=== PATIENT | female | born 1935 | race Caucasian/White ===

== ENCOUNTER 2018-05-14 08:52 | Outpatient (CLI) | payer MEDICARE, BC | END 2018-05-14 08:53 | disposition home or self-care (01) | LOC: BICMAMMO 08:52 | PROVIDERS: ATTEND Internal Medicine | DX: Z12.31 Encounter for screening mammogram for malignant neoplasm of breast (principal) | CPT/HCPCS: 77063; 77067 ==

== ENCOUNTER 2020-11-29 08:33 | Outpatient (CLI) | payer MEDICARE, BC ==
--- NOTE | 2020-11-29 09:02 | RAD ---
PA AND LATERAL CHEST: Date: 11/29/2020 COMPARISON: 03/17/2019 study. HISTORY: Respiratory distress. FINDINGS: Heart size within normal limits. There are postop sternotomy changes. Lungs are clear of infiltrates. There are arthritic changes of the spine. IMPRESSION: No active intrathoracic disease. POS: [id number]
== END 2020-11-29 08:34 | disposition home or self-care (01) ==
LOC: BICRAD 08:33
PROVIDERS: ATTEND Internal Medicine Cardiovascular Disease
DX: R06.02 Shortness of breath (principal); R06.00 Dyspnea, unspecified
CPT/HCPCS: 36415; 71046; 80048; 83880; 85027

== ENCOUNTER 2022-08-08 10:02 | Outpatient (CLI) | payer MEDICARE, BC | END 2022-08-08 10:03 | disposition home or self-care (01) | LOC: BICMAMMO 10:02 | PROVIDERS: ATTEND Internal Medicine | DX: Z13.820 Encounter for screening for osteoporosis (principal); M85.88 Other specified disorders of bone density and structure, other site; M81.0 Age-related osteoporosis without current pathological fracture; Z78.0 Asymptomatic menopausal state | CPT/HCPCS: 77080 ==